=== PATIENT | female | born 1935 | race Caucasian/White ===

== ENCOUNTER → 2016-09-12 | Outpatient (CLI) | payer MEDICARE, OTHER ==
[~2016-09-12] MED LIST: ASPIRINEC PO; CENTRUM SILVER PO; GLUCOSAMINE; KEFLEX PO; LISINOPRIL PO; OYSTER CALCIUM500 MG PO; TOPROL XL PO
--- NOTE | ~2016-09-12 | US77 ---
[facility] A Service of [facility] RADIOLOGY TEXT RESULTS PATIENT: ZAID BLUM LOCATION: [facility] : 37 UNIT #: [id number] AGE: [address]: DOMINICK NDIAYE MD SEX: F ORDER DR: [id number] [place] [id number] [facility] [place]. [place], [place] [address] [id number] O MR#: [id number] Acc #: [id number] NAME: ZAID BLUM : 1935 SEX: F STUDY DATE/TIME: 09/12/2016 14:12 UNIT: [facility] ROOM: STUDY DESCRIPTION: US Kidney Bilateral Complete Attending Physician: Dominick Ndiaye M.D. Referring Physician: Dominick Ndiaye M.D. Ordering Physician: Dominick Ndiaye M.D. Primary Care Physician: Dominick dNiaye M.D. MEDICAL IMAGING REPORT This report is preliminary unless electronic signature is present EXAM Renal ultrasound. DATE OF EXAM 09/12/2016 INDICATION Chronic kidney disease stage 2. TECHNIQUE Tan-scale and color Doppler sonographic images were obtained through the kidneys and bladder. FINDINGS Right kidney measures within normal size limits, although, I think there is some cortical thinning, and I think it is mildly echogenic. No solid or cystic renal masses are seen and there is no hydronephrosis. Urinary bladder appears within normal limits. The left kidney also may be mildly echogenic, although, the cortex does not appear as thinned, as on the contralateral side. No solid or cystic renal masses are seen, and there is no hydronephrosis. IMPRESSION I do think the kidneys appear somewhat echogenic, which certainly would be in keeping with the patient's history of chronic medical renal disease. There also appears to be some cortical thinning on the right. No solid or cystic renal masses are seen, and there is no hydronephrosis. Dictated by... Charis Casillas M.D. [facility] A Service of [facility] RADIOLOGY TEXT RESULTS PATIENT: ZAID BLUM LOCATION: [facility] : 37 UNIT #: [id number] AGE: [address]: DOMINICK NDIAYE MD SEX: F ORDER DR: THIS IS AN ELECTRONICALLY VERIFIED REPORT Charis Casillas M.D. at 09/13/2016 3:03 PM AFF/emery TD: 09/12/2016 22:15 JOB #: [id number] MEDICAL IMAGING REPORT Page 1 of 1 COPY
== END | disposition home or self-care (01) ==
LOC: CGUS 12:51
DX: R68.89 Other general symptoms and signs (principal); I10 Essential (primary) hypertension
CPT/HCPCS: 76770; 93306